=== PATIENT | female | born 1945 | race Caucasian/White ===

== ENCOUNTER 2017-10-07 15:43 | Emergency (ER) | payer OTHER, BC, MEDICARE ==
[~2017-10-07] VITALS: Ht 160 cm; Wt 78.7 kg
[~2017-10-07 15:43] MED LIST: ADVAIR 100/501 DISK IH; AMBIEN10 MG PO; ASPIR-LOW81 MG PO; IMITREX50 MG PO; LEVOFLOXACIN500 MG PO; NEXIUM40 MG PO; NITROFURANTOIN100 M3 PO; OXYBUTYNIN CHLO10 MG PO; PROAIR HFA8.5 GM IH; ZEGERID20 MG PO
[2017-10-07 17:10] LABS: HEMATOCRIT 42.7 % (36.0-46.0); HEMOGLOBIN 14.2 G/DL (11.9-15.5); MCH 30.2 PG (29.0-34.0); MCHC 33.3 G/DL (30.0-36.0); MCV 90.9 FL (83-99); PLATELET COUNT 243 K/uL (156-360); RBC DIS.WIDTH-CV 13.5 % (11.8-14.6); RBC DIS.WIDTH-SD 45.4 % (39-53); WHITE BLOOD COUNT 7.2 K/uL (4.1-10.2)
[2017-10-07 17:19] LABS: CHLORIDE 108 mEq/L (99-109); POTASSIUM 4.3 mEq/L (3.7-5.4); SODIUM 140 mEq/L (136-147)
[2017-10-07 17:20] LABS: GLUCOSE 103 mg/dL (70-99)
[2017-10-07 17:24] LABS: CREATININE 0.9 mg/dL (0.6-1.3); GFR ESTIMATE (CALCULATED) > 59 mL/min/
[2017-10-07 17:25] LABS: UREA NITROGEN (BUN) 25 mg/dL (9-23)
[2017-10-07 19:08] VITALS: BP 135/87
== END 2017-10-07 19:15 | disposition home or self-care (01) ==
LOC: EME 15:43
PROVIDERS: Emergency Medicine
DX: G43.909 Migraine, unspecified, not intractable, without status migrainosus (principal); E86.0 Dehydration; K21.9 Gastro-esophageal reflux disease without esophagitis; Z88.5 Allergy status to narcotic agent; Z88.1 Allergy status to other antibiotic agents
CPT/HCPCS: 70450; 80048; 85027; 99281; 99284; J7030

== ENCOUNTER 2017-10-12 16:29 | Emergency (ER) | payer OTHER, MEDICARE ==
[~2017-10-12] VITALS: Ht 160 cm; Wt 79.9 kg
[2017-10-12 17:05] LABS: HEMATOCRIT 49.5 % (36.0-46.0); MCH 30.4 PG (29.0-34.0); MCHC 33.5 G/DL (30.0-36.0); MCV 90.7 FL (83-99); PLATELET COUNT 276 K/uL (156-360); RBC DIS.WIDTH-CV 13.9 % (11.8-14.6); RBC DIS.WIDTH-SD 46.7 % (39-53); RED BLOOD COUNT 5.46 M/uL (3.80-5.20); WHITE BLOOD COUNT 10.8 K/uL (4.1-10.2)
[2017-10-12 17:09] LABS: CHLORIDE 102 mEq/L (99-109); POTASSIUM 4.2 mEq/L (3.7-5.4); SODIUM 138 mEq/L (136-147)
[2017-10-12 17:11] LABS: GLUCOSE 107 mg/dL (70-99)
[2017-10-12 17:13] LABS: HEMOGLOBIN 16.6 G/DL (11.9-15.5)
[2017-10-12 17:15] LABS: CREATININE 1.1 mg/dL (0.6-1.3); GFR ESTIMATE (CALCULATED) 52 mL/min/
[2017-10-12 17:16] LABS: UREA NITROGEN (BUN) 28 mg/dL (9-23)
[2017-10-12 17:22] LABS: TROP-I INTERPRETATION NEGATIVE; TROPONIN-I < 0.01 ng/mL (0.0-0.30)
[2017-10-12 20:52] VITALS: BP 147/92
== END 2017-10-12 20:53 | disposition home or self-care (01) ==
LOC: EME 16:29
DX: R42 Dizziness and giddiness (principal); I45.10 Unspecified right bundle-branch block; K21.9 Gastro-esophageal reflux disease without esophagitis; Z88.5 Allergy status to narcotic agent; Z88.1 Allergy status to other antibiotic agents
CPT/HCPCS: 70450; 80048; 83880; 84484; 85027; 93005; 99281; 99285; J7030